=== PATIENT | female | born 1990 | race African-American/Black ===

== ENCOUNTER 2016-09-12 17:41 | Emergency (ER) | payer OTHER | END 2016-09-12 20:45 | disposition home or self-care (01) | LOC: CED 17:41 → CFTX 17:41 | DX: S01.511A Laceration without foreign body of lip, initial encounter (principal); F17.200 Nicotine dependence, unspecified, uncomplicated; W10.9XXA Fall (on) (from) unspecified stairs and steps, initial encounter | CPT/HCPCS: 12011; 99282 ==